=== PATIENT | female | born 1955 | race Caucasian/White ===

== ENCOUNTER → 2017-02-27 | Outpatient (CLI) | payer BC, OTHER ==
[~2017-02-27] MED LIST: ESTR1TAB27 PO; LVT.1T PO; MAGN400C PO; MEDR5TAB4 PO; SUMA100T3 PO; TOPI50TA2 PO
== END ==
LOC: RAD 13:05
PROVIDERS: ATTEND Nurse Practitioner Family
DX: Z12.31 Encounter for screening mammogram for malignant neoplasm of breast (principal)
CPT/HCPCS: 77067

== ENCOUNTER → 2018-04-30 | Outpatient (CLI) | payer BC ==
--- NOTE | 2018-04-30 21:26 | Diagnostic Imaging Report ---
INDICATION: Routine screening. Comparison is made with prior mammogram from 02/27/2017 and 02/13/2016. 2-D and 3-D bilateral screening mammography was performed with a Computer Aided Detection (CAD) system. FINDINGS: Both breasts remain heterogeneously dense, limiting the sensitivity of mammography. Benign nodules in the upper outer aspects of both breasts appear stable and most consistent with intraparenchymal lymph nodes. No new mass or malignant appearing microcalcifications are seen. Axillae are unremarkable. IMPRESSION: No mammographic features suspicious for malignancy are identified. ACR BI-RADS Category 2: Benign findings. Result letter will be mailed to the patient. Note: At least 10% of breast cancer is not imaged by mammography. Dictated by: Dictated on workstation # [id number]
== END ==
LOC: RAD 11:14
PROVIDERS: ATTEND Internal Medicine
DX: Z12.31 Encounter for screening mammogram for malignant neoplasm of breast (principal)
CPT/HCPCS: 77067

== ENCOUNTER → 2018-06-19 | Outpatient (CLI) | payer BC ==
--- NOTE | 2018-06-19 14:36 | Diagnostic Imaging Report ---
PROCEDURE: MRI lumbar spine. TECHNIQUE: Multiplanar, multisequence MRI of the lumbar spine was performed without contrast. INDICATION: Low back pain extending into the left leg. No prior studies are available for comparison. There is left convexity lumbar scoliotic curvature. There is normal lordotic curvature. There is grade 1 spondylolisthesis of L5 on S1, likely owing to bilateral pars defects. Vertebral body heights are maintained. No acute compression fracture is seen. No geographic marrow lesion is identified. There is generalized disc desiccation and degenerative change, most marked at the L4-L5 and L5-S1 levels where there is significant disc space narrowing. Conus is unremarkable at the L1 level. T12-L1: There is a left para midline wide based disc bulge/osteophyte producing slight indentation of the ventral thecal sac. Central canal remains patent. No neural foraminal stenosis is seen. L1-L2: No central canal or neural foraminal stenosis is seen. L2-L3: There is some ligamentous thickening and broad-based disc/osteophyte complex. Central canal is patent. There is mild broad-based disc/osteophyte complex in a right far lateral region but no resultant neural foraminal narrowing is seen. L3-L4: There is ligamentous thickening and facet changes. Central canal is patent. There appears to be some right neuroforaminal stenosis due to disc/osteophyte complex. The left neural foramen is patent. L4-L5: Central canal is patent. There is broad-based disc/osteophyte complex which narrows the lateral recesses bilaterally. No significant neural foraminal stenosis is seen. L5-S1: Central canal is widely patent. There is moderate bilateral neural foraminal stenosis due to the spondylolisthesis. Paraspinous tissues are unremarkable. IMPRESSION: Multilevel lumbar spondylosis and multilevel neural foraminal and lateral recess narrowing described level by level above. No significant central canal stenosis is seen. No acute compression fracture is identified. Dictated by: Dictated on workstation # [id number]
--- NOTE | 2018-06-19 14:59 | Diagnostic Imaging Report ---
PROCEDURE: MRI left joint lower extremity without contrast. TECHNIQUE: Multiplanar, multisequence non contrast-enhanced MRI of the left lower extremity was accomplished. INDICATION: Left knee pain, mostly lateral COMPARISON: None FINDINGS: There is motion artifact on multiple sequences. No acute fracture is seen in the left knee. Alignment appears normal. There is no significant joint effusion. The articular cartilage in the patellofemoral compartment demonstrates high-grade cartilage loss over the medial facet. The articular cartilage in the medial and lateral compartments demonstrates mild thinning and surface irregularity with no large full-thickness defects. There is increased signal in the posterior horn of the medial meniscus, likely due to degeneration. Discrete tear is not seen. The lateral meniscus appears intact. The anterior and posterior cruciate ligaments are intact. The medial collateral ligament is intact. The lateral collateral ligamentous complex are intact. The extensor mechanism appears intact. The medial and lateral retinacula are intact. There is moderate edema at the superolateral aspect of Hoffa's fat pad. The soft tissues about the left knee are otherwise unremarkable. IMPRESSION: 1. Intrasubstance degeneration of the medial meniscus with no discrete meniscal or ligamentous tear is seen in the left knee. 2. Mild tricompartmental cartilage loss in the left knee. 3. Moderate edema in the superolateral aspect of Hoffa's fat pad, concerning for patellofemoral impingement/friction syndrome. Dictated by: Dictated on workstation # [id number]
== END ==
LOC: RAD 13:02
PROVIDERS: ATTEND Orthopaedic Surgery
DX: M23.262 Derangement of other lateral meniscus due to old tear or injury, left knee (principal); M94.8X8 Other specified disorders of cartilage, other site; M48.07 Spinal stenosis, lumbosacral region; M43.17 Spondylolisthesis, lumbosacral region; M47.816 Spondylosis without myelopathy or radiculopathy, lumbar region; M41.86 Other forms of scoliosis, lumbar region; M51.16 Intervertebral disc disorders with radiculopathy, lumbar region
CPT/HCPCS: 72148; 73721

== ENCOUNTER → 2019-05-03 | Outpatient (CLI) | payer BC ==
--- NOTE | 2019-05-03 12:33 | Diagnostic Imaging Report ---
INDICATION: Routine screening. COMPARISON: 04/30/2018 and 02/27/2017. TECHNIQUE: 2D and 3D bilateral screening mammography was performed with CAD. FINDINGS: Both breasts remain heterogeneously dense, limiting the sensitivity of mammography. Benign-appearing nodular densities in the outer portions of both breasts appear stable and most consistent with intraparenchymal lymph nodes. No new mass or malignant appearing microcalcifications are seen. The axillae are unremarkable. IMPRESSION: No mammographic features suspicious for malignancy are identified. ACR BI-RADS Category 2: Benign findings. Result letter will be mailed to the patient. Note: At least 10% of breast cancer is not imaged by mammography. Dictated by: Dictated on workstation # [id number]
== END ==
LOC: RAD 11:36
PROVIDERS: ATTEND Nurse Practitioner Family
DX: Z12.31 Encounter for screening mammogram for malignant neoplasm of breast (principal)
CPT/HCPCS: 77067

== ENCOUNTER 2019-08-10 12:59 | Emergency (ER) | payer BC ==
[~2019-08-10] VITALS: Ht 165.1 cm; Wt 77.1 kg
--- OUTSIDE RECORDS SUMMARY | 2019-08-10 13:10 | XMS REPORT | Continuity of Care Document ---
Author Organization Unknown Address Unknown Phone Unavailable Allergies Active Description Code Type Severity Reaction Onset Reported/Identified Relationship to Patient Clinical Status Yes No Known Drug Allergies [id number] Drug Allergy Unknown N/A 07/21/2013 Medications There is no data. Problems Date Dx Coded Attending Type Code Diagnosis Diagnosed By 07/21/2013 CHESTER STEEN MD Ot 455.0 INT HEMORRHOID W/O COMPL 07/21/2013 CHESTER STEEN MD Ot 455.3 EXT HEMORRHOID W/O COMPL 07/21/2013 CHESTER STEEN MD Ot V76.51 SCREEN MAL NEOP-COLON 02/09/2015 MADDISON JACOBO SUPERVISOR TESTING Ot Z12.31 02/09/2015 Ot V76.12 02/09/2015 Ot V76.12 02/09/2015 MADDISON JACOBO SUPERVISOR TESTING Ot V76.12 02/09/2015 MADDISON JACOBO SUPERVISOR TESTING Ot 241.0 02/09/2015 CHESTER STEEN MD Ot V72.84 02/09/2015 MADDISON JACOBO SUPERVISOR TESTING Ot V76.12 02/09/2015 MADDISON JACOBO SUPERVISOR TESTING Ot Z12.31 02/15/2015 MADDISON JACOBO SUPERVISOR TESTING Ot Z12.31 02/15/2015 MADDISON JACOBO SUPERVISOR TESTING Ot Z12.31 02/15/2015 MADDISON JACOBO SUPERVISOR TESTING Ot Z12.31 02/23/2015 MADDISON JACOBO SUPERVISOR TESTING Ot Z12.31 02/13/2016 Ot V76.12 OTH SCREEN MAMMO- MALIGN NEOPLASM OF ALVARO 02/13/2016 MADDISON JACOBO SUPERVISOR TESTING Ot V76.12 OTH SCREEN MAMMO-MALIGN NEOPLASM OF ALVARO 02/13/2016 MADDISON JACOBO SUPERVISOR TESTING Ot 241.0 NONTOX UNINODULAR GOITER 02/13/2016 CHESTER STEEN MD Ot V72.84 EXAM PRE-OPERATIVE NOS 02/13/2016 JACOBO, MADDISON L SUPERVISOR TESTING Ot V76.12 OTH SCREEN MAMMO-MALIGN NEOPLASM OF ALVARO 02/13/2016 JACOBO MADDISON L SUPERVISOR TESTING Ot Z12.31 ENCNTR SCREEN MAMMOGRAM FOR MALIGNANT NE 02/19/2016 NEELIMA JACOBORICIA L SUPERVISOR TESTING Ot Z12.31 ENCNTR SCREEN MAMMOGRAM FOR MALIGNANT NE 02/26/2016 JACOBO, MADDISON L SUPERVISOR TESTING Ot Z12.31 ENCNTR SCREEN MAMMOGRAM FOR MALIGNANT NE 02/25/2017 Ot V76.12 OTH SCREEN MAMMO- MALIGN NEOPLASM OF ALVARO 02/25/2017 OSIEL JACOBOIA L SUPERVISOR TESTING Ot V76.12 OTH SCREEN MAMMO-MALIGN NEOPLASM OF ALVARO 02/25/2017 OSIEL JACOBOIA L SUPERVISOR TESTING Ot 241.0 NONTOX UNINODULAR GOITER 02/25/2017 CELSA OWENS, CHESTER Ot V72.84 EXAM PRE-OPERATIVE NOS 02/25/2017 JACOBO MADDISON L SUPERVISOR TESTING Ot V76.12 OTH SCREEN MAMMO-MALIGN NEOPLASM OF ALVARO 02/25/2017 OSIEL JACOBOIA L SUPERVISOR TESTING Ot Z12.31 ENCNTR SCREEN MAMMOGRAM FOR MALIGNANT NE 02/25/2017 NEELIMA JACOBORICIA L SUPERVISOR TESTING Ot Z12.31 ENCNTR SCREEN MAMMOGRAM FOR MALIGNANT NE 03/13/2017 OSIEL JACOBOIA L SUPERVISOR TESTING Ot Z12.31 ENCNTR SCREEN MAMMOGRAM FOR MALIGNANT NE 04/27/2018 NEELIMA JACOBORICIA L SUPERVISOR TESTING Ot Z12.31 ENCNTR SCREEN MAMMOGRAM FOR MALIGNANT NE 04/28/2018 JACOBO, MADDISON L SUPERVISOR TESTING Ot Z12.31 ENCNTR SCREEN MAMMOGRAM FOR MALIGNANT NE 04/30/2018 NEELIMA JACOBORICIA L SUPERVISOR TESTING Ot Z12.31 ENCNTR SCREEN MAMMOGRAM FOR MALIGNANT NE 05/01/2018 LALO JACOBO DO Ot Z12.31 ENCNTR SCREEN MAMMOGRAM FOR MALIGNANT NE 05/13/2018 LALO JACOBO DO Ot Z12.31 ENCNTR SCREEN MAMMOGRAM FOR MALIGNANT NE 06/21/2018 JUAN OWENS, SYLWIA Lind Ot M23.262 DERANGEMENT OF LAT MENSC DUE TO OLD TEAR 06/21/2018 SYLWIA MARTINEZ MD Ot M41.86 OTHER FORMS OF SCOLIOSIS, LUMBAR REGION 06/21/2018 SYLWIA MARTINEZ MD Ot M43.17 SPONDYLOLISTHESIS, LUMBOSACRAL REGION 06/21/2018 SYLWIA MARTINEZ MD Ot M47.816 SPONDYLOSIS W/O MYELOPATHY OR RADICULOPA 06/21/2018 SYLWIA MARTINEZ MD Ot M48.07 SPINAL STENOSIS, LUMBOSACRAL REGION 06/21/2018 SYLWIA MARTINEZ MD Ot M51.16 INTERVERTEBRAL DISC DISORDERS W RADICULO 06/21/2018 SYLWIA MARTINEZ MD Ot M94.8X8 OTHER SPECIFIED DISORDERS OF CARTILAGE, 07/01/2018 SYLWIA MARTINEZ MD Ot M23.262 DERANGEMENT OF LAT MENSC DUE TO OLD TEAR 07/01/2018 SYLWIA MARTINEZ MD Ot M41.86 OTHER FORMS OF SCOLIOSIS, LUMBAR REGION 07/01/2018 SYLWIA MARTINEZ MD Ot M43.17 SPONDYLOLISTHESIS, LUMBOSACRAL REGION 07/01/2018 SYLWIA MARTINEZ MD Ot M47.816 SPONDYLOSIS W/O MYELOPATHY OR RADICULOPA 07/01/2018 SYLWIA MARTINEZ MD Ot M48.07 SPINAL STENOSIS, LUMBOSACRAL REGION 07/01/2018 SYLWIA MARTINEZ MD Ot M51.16 INTERVERTEBRAL DISC DISORDERS W RADICULO 07/01/2018 SYLWIA MARTINEZ MD, Ot M94.8X8 OTHER SPECIFIED DISORDERS OF CARTILAGE, 05/03/2019 MADDISON JACOBO Ot Z12.31 ENCNTR SCREEN MAMMOGRAM FOR MALIGNANT NE 05/25/2019 MADDISON JACOBO Ot Z12.31 ENCNTR SCREEN MAMMOGRAM FOR MALIGNANT NE Procedures There is no data. Results There is no data. Encounters ACCT No. Visit Date/Time Discharge Status Pt. Type Provider Facility Loc./Unit Complaint [id number] 05/03/2019 11:36:00 020 23:59:59 [facility] Outpatient MADDISON JACOBO Via [facility] RAD SCREENING [id number] 06/19/2018 13:02:00 019 23:59:59 [facility] Outpatient SYLWIA MARTINEZ MD Via [facility] RAD LT TORSTEN STARK OF OTHER LATERAL MENISCUS [id number] 04/30/2018 11:14:00 019 23:59:59 CLS Outpatient JACOBO LALO Melchor Via [facility] RAD SCREENING [id number] 02/27/2017 13:05:00 017 23:59:59 CLS Outpatient JACOBO, MADDISON L SUPERVISOR TESTING Via [facility] RAD SCREENING [id number] 02/13/2016 12:54:00 016 23:59:59 CLS Outpatient JACOBO, MADDISON L SUPERVISOR TESTING Via [facility] RAD ROUTINE [id number] 02/07/2015 11:43:00 015 23:59:59 CLS Outpatient JACOBO, MADDISON L SUPERVISOR TESTING Via [facility] RAD SCREENING [id number] 01/17/2014 10:44:00 014 23:59:59 CLS Outpatient JACOBO, MADDISON L SUPERVISOR TESTING Via [facility] RAD ROUTINE [id number] 07/21/2013 07:57:00 014 11:45:00 DIS Outpatient CHESTER STEEN MD Via [facility] SDC SCREENING [id number] 07/14/2013 07:14:00 014 23:59:59 CLS Outpatient CHESTER STEEN MD Via [facility] PREOP SCREENING [id number] 02/12/2013 13:54:00 23:59:59 CLS Outpatient JACOBO, MADDISON L SUPERVISOR TESTING Via [facility] RAD THYROMEGLY [id number] 01/11/2013 11:25:00 23:59:59 CLS Outpatient JACOBO, MADDISON L SUPERVISOR TESTING Via [facility] RAD SCREENING [id number] 09/13/2011 10:01:00 Document Registration [id number] 07/30/2010 09:22:00 Document Registration
[2019-08-10] MEDS ORDERED: ONDANSETRON 4 MG (ZOFRAN) ORAL DISSOLVE TAB SL STA (13:55)
[2019-08-10 13:58] LABS: BILIRUBIN,URINE NEGATIVE (NEGATIVE); CLARITY,URINE CLEAR; COLOR,URINE YELLOW; GLUCOSE, URINE (UA) NEGATIVE (NEGATIVE); KETONES,URINE NEGATIVE (NEGATIVE); LEUKOCYTE ESTERASE ,URINE TRACE (NEGATIVE); NITRITE,URINE NEGATIVE (NEGATIVE); PH,URINE 6.5 (5-9); PROTEIN,URINE NEGATIVE (NEGATIVE)
[2019-08-10 14:05] LABS: BACTERIA,URINE TRACE /HPF; WBC,URINE RARE /HPF
[2019-08-10] MEDS ORDERED: NS IV 1000 ML 1,000 ML IV SCH (14:05)
--- NOTE | 2019-08-10 14:14 | ED Abdominal Pain ---
General Chief Complaint: Abdominal/GI Problems Stated Complaint: ABD PAIN Nursing Triage Note: Pt amb to rm 4 with complaint of llq pain that started last friday. states pain is intermittent. last bm this normal. states was a normal bowel movement Sepsis Screen: No Definite Risk History of Present Illness Date Seen by Provider: Aug 10, 2019 Time Seen by Provider: 13:25 Initial Comments 64-year-old female presents with left lower quadrant pain, radiating to left lower back that has been present intermittently since 08/02/19; nausea secondary to the pain. It became significantly worse today. She's not taken any medication for the pain or see her primary care provider. No history of chronic abdominal problems she's had no previous abdominal surgeries. Colonoscopy 1 year ago, no concerns. Ate breakfast this am and coffee, no N/V/D after eating. Timing/Duration: 6-7 Days Severity/Quality: Moderate Location: LLQ Radiation: Flank (left) Associated Symptoms: Back Pain, Nausea/Vomiting Allergies and Home Medications Allergies Coded Allergies: No Known Drug Allergies (Unverified , 07/21/13) Home Medications Estradiol 1 Mg Tablet, 1 MG PO DAILY, (Reported) Levothyroxine Sodium 100 Mcg Tablet, 1 EACH PO DAILY, (Reported) Magnesium Oxide 400 Mg Capsule, 400 MG PO DAILY, (Reported) Medroxyprogesterone Acetate 5 Mg Tablet, 1 EACH PO DAILY, (Reported) Sumatriptan Succinate 100 Mg Tablet, 100 MG PO DAILY PRN for MIGRAINE, (Reported) Topiramate 50 Mg Tablet, 50 MG PO DAILY, (Reported) Patient Home Medication List Home Medication List Reviewed: Yes Review of Systems Review of Systems Constitutional: no symptoms reported, see HPI Gastrointestinal: See HPI, Abdominal Pain; Denies Diarrhea; Nausea; Denies Vomiting Genitourinary: See HPI, Flank Pain (left) All Other Systems Reviewed Negative Unless Noted: Yes Past Mxrcxmc-Cegpsy-Rctqka Hx Past Med/Social Hx: Reviewed Nursing Past Med/Soc Hx Patient Social History Alcohol Use: Denies Use Recreational Drug Use: No Smoking Status: Never a Smoker Recent Foreign Travel: No Contact w/Someone Who Travel: No Recent Infectious Disease Expo: No Immunizations Up To Date PED Vaccines UTD: Yes Past Medical History Surgeries: Yes (CYST REMOVED FROM OVARY; WISDOM TEETH) Respiratory: No Cardiac: No Neurological: No Gastrointestinal: No Musculoskeletal: No Endocrine: Yes Physical Exam Vital Signs Vital Signs - First Documented 08/10/19 13:23 Temp 36.3 Pulse 73 Resp 20 B/P (MAP) 177/94 (121) Pulse Ox 97 O2 Delivery Room Air Capillary Refill : Less Than 3 Seconds Height/Weight/BMI Height: 5'5.00" Weight: 165lbs. oz. 74.402565sr; 28.00 BMI Method: General Appearance: WD/WN, mild distress (secondary to pain) HEENT: PERRL/EOMI, normal ENT inspection, TMs normal, pharynx normal Neck: non-tender, full range of motion, supple, normal inspection Respiratory: chest non-tender, lungs clear, normal breath sounds Cardiovascular: normal peripheral pulses, regular rate, rhythm Gastrointestinal: normal bowel sounds, soft; No distended, No rebound; tenderness (LLQ); No mass Back: normal inspection, no vertebral tenderness, CVA tenderness (L) Neurologic/Psychiatric: no motor/sensory deficits, alert, normal mood/affect, oriented x 3 Skin: normal color, warm/dry Progress/Results/Core Measures Results/Orders Lab Results Laboratory Tests Test 08/10/19 13:28 08/10/19 14:20 Range/Units Urine Color YELLOW Urine Clarity CLEAR Urine pH 6.5 5-9 Urine Specific [place] <=1.005 1.016-1.022 Urine Protein NEGATIVE NEGATIVE Urine Glucose (UA) NEGATIVE NEGATIVE Urine Ketones NEGATIVE NEGATIVE Urine Nitrite NEGATIVE NEGATIVE Urine Bilirubin NEGATIVE NEGATIVE Urine Urobilinogen 0.2 < = 1.0 MG/DL Urine Leukocyte Esterase TRACE H NEGATIVE Urine RBC (Auto) NEGATIVE NEGATIVE Urine RBC NONE /HPF Urine WBC RARE /HPF Urine Squamous Epithelial Cells 5-10 /HPF Urine Crystals NONE /LPF Urine Bacteria TRACE /HPF Urine Casts NONE /LPF Urine Mucus NEGATIVE /LPF Urine Culture Indicated NO White Blood Count 8.8 4.3-11.0 10^3/uL Red Blood Count 5.07 4.35-5.85 10^6/uL Hemoglobin 15.2 11.5-16.0 G/DL Hematocrit 45 35-52 % Mean Corpuscular Volume 89 80-99 FL Mean Corpuscular Hemoglobin 30 25-34 PG Mean Corpuscular Hemoglobin Concent 34 32-36 G/DL Red Cell Distribution Width 13.0 10.0-14.5 % Platelet Count 318 130-400 10^3/uL Mean Platelet Volume 9.6 7.4-10.4 FL Neutrophils (%) (Auto) 64 42-75 % Lymphocytes (%) (Auto) 24 12-44 % Monocytes (%) (Auto) 9 0-12 % Eosinophils (%) (Auto) 2 0-10 % Basophils (%) (Auto) 1 0-10 % Neutrophils # (Auto) 5.6 1.8-7.8 X 10^3 Lymphocytes # (Auto) 2.1 1.0-4.0 X 10^3 Monocytes # (Auto) 0.8 0.0-1.0 X 10^3 Eosinophils # (Auto) 0.2 0.0-0.3 10^3/uL Basophils # (Auto) 0.1 0.0-0.1 10^3/uL Sodium Level 136 135-145 MMOL/L Potassium Level 3.9 3.6-5.0 MMOL/L Chloride Level 107 98-107 MMOL/L Carbon Dioxide Level 18 L 21-32 MMOL/L Anion Gap 11 5-14 MMOL/L Blood Urea Nitrogen 14 7-18 MG/DL Creatinine 0.94 0.60-1.30 MG/DL Estimat Glomerular Filtration Rate 60 BUN/Creatinine Ratio 15 Glucose Level 92 70-105 MG/DL Calcium Level 8.8 8.5-10.1 MG/DL Corrected Calcium 8.9 8.5-10.1 MG/DL Total Bilirubin 0.3 0.1-1.0 MG/DL Aspartate Amino Transf (AST/SGOT) 12 5-34 U/L Alanine Aminotransferase (ALT/SGPT) 10 0-55 U/L Alkaline Phosphatase 62 40-136 U/L Total Protein 6.8 6.4-8.2 GM/DL Albumin 3.9 3.2-4.5 GM/DL Amylase Level 45 25-125 U/L Lipase 40 8-78 U/L My Orders Orders - MAIRA BANEGAS Ua Culture If Indicated (08/10/19 13:01) Ondansetron Oral Dissolve Tab (Zofran (08/10/19 13:55) Ct Abd/Pelvis Wo(Kidney Stone) (08/10/19 14:05) Ed Iv/Invasive Line Start (08/10/19 14:05) Ketorolac Injection (Toradol Injection) (08/10/19 14:15) Amylase (08/10/19 14:05) Cbc With Automated Diff (08/10/19 14:05) Comprehensive Metabolic Panel (08/10/19 14:05) Lipase (08/10/19 14:05) Ed Iv/Invasive Line Start (08/10/19 14:05) Ns Iv 1000 Ml (Sodium Chloride 0.9%) (08/10/19 14:05) Ca 125 (08/10/19 15:27) Us Pelvic Non-Ob [id number] (08/10/19 15:19) Medications Given in ED Current Medications Medications Dose Ordered Sig/Sarita Route Start Time Stop Time Status Last Admin Dose Admin Ketorolac Tromethamine 15 mg ONCE ONCE IV 08/10/19 14:15 08/10/19 14:16 DC 08/10/19 14:22 15 MG Vital Signs/I&O 08/10/19 13:23 Temp 36.3 Pulse 73 Resp 20 B/P (MAP) 177/94 (121) Pulse Ox 97 O2 Delivery Room Air Blood Pressure Mean: 121 Progress Progress Note : Time: 13:25 Progress Note Patient seen and evaluated, will obtain labs and CT study. 1415 patient reports pain has improved. Awaiting CT, labs WNL. [address] Kenyon, asked to add CA 125 to labs. Will see patient later this week. Will obtain US. [address] results discussed with the patient. Discharge instructions and return precautions reviewed. Diagnostic Imaging Diagonstic Imaging: CT Plain Films/CT/US/NM/MRI: abdomen, pelvis Comments NAME: [facility] REC#: [id number] PT STATUS: REG ER : 1955 PHYSICIAN: MAIRA BANEGAS ADMIT DATE: 08/10/19/ER Draft Date of Exam:08/10/19 CT ABD/PELVIS WO(KIDNEY STONE) PROCEDURE: CT urinary tract, rule out kidney stone. TECHNIQUE: Multiple contiguous axial images were obtained through the abdomen and pelvis without the use of intravenous contrast. Auto Exposure Controls were utilized during the CT exam to meet ALARA standards for radiation dose reduction. INDICATION: Left lower quadrant pain. COMPARISON: No prior studies are available for comparison. FINDINGS: The lung bases are clear of acute infiltrates. The liver does contain multiple circumscribed low densities, suggestive of cysts. The largest is in the left lobe laterally measuring 3.4 cm. The gallbladder is unremarkable. No biliary ductal dilatation is identified. The pancreas and spleen are unremarkable. No adrenal mass is identified. No definite renal calculi or hydronephrosis is identified. No ureteral calculi are seen. There is a large cystic mass in the midline of the pelvis, directly cephalad to the urinary bladder. This does have some septated components. This mass measures 16.6 cm AP x 13.7 cm transverse. This may be ovarian in etiology. The uterus is unremarkable. No free fluid in the abdomen or pelvis is identified. No central retroperitoneal or mesenteric lymphadenopathy is detected. There is a small fat-containing umbilical hernia. No definite pelvic lymphadenopathy is detected. Bony structures demonstrate pars defects at the L5-S1 level with grade 1 spondylolisthesis of L5 on S1. IMPRESSION: 1. Hepatic cyst. 2. Large septated cystic mass midline pelvis. It is likely ovarian in etiology. Further characterization could be performed with pelvic sonography. No definite free fluid or evidence of omental caking is identified to suggest peritoneal carcinomatosis. Dictated on workstation # [id number] Dict: 08/10/19 1449 Trans: 08/10/19 1457 [facility] [id number] Interpreted by: JUNE CORTEZ MD Electronically signed by: Faisal Imaging: Ultrasound Plain Films/CT/US/NM/MRI: pelvis Comments NAME: ANNA ENNIS [facility] REC#: [id number] PT STATUS: REG ER : 1955 PHYSICIAN: MAIRA BANEGAS ADMIT DATE: 08/10/19/ER Draft Date of Exam:08/10/19 US PELVIC NON-OB [id number] HISTORY: Pelvic mass seen on CT. COMPARISON: CT scan from the same day. TECHNIQUE: Transabdominal ultrasound of the pelvis. FINDINGS: There is a large mostly anechoic cystic lesion in the midline of the pelvis and, due to the size, it is better measured on the prior CT. By ultrasound, it measures at least 16.5 x 8 x 13.5 cm. There is internal debris and echogenicity. No nodular solid component is seen. No papillary projections are seen. There are internal septations as well, some of which are vascular. The ovaries and uterus are not well seen on these images. IMPRESSION: Very large complex cystic lesion in the pelvis. There are vascularized septations but no nodular component is seen. 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 Recommend gynecology consult. Dictated on workstation # [id number] Dict: 08/10/19 1634 Trans: 08/10/19 1652 [id number] Interpreted by: JAVI RAMOS MD Electronically signed by: Reviewed: Reviewed by Me, Reviewed/Discussed (With [employer]) Departure Impression Primary Impression: Pelvic mass Disposition: HOME, SELF-CARE Condition: Stable Departure-Patient Inst. Decision time for Depature: 16:15 Referrals: LALO JACOBO DO (PCP) Primary Care Physician MADDISON JACOBO, SOLOMON (Family) Primary Care Physician JIMBO KENYON DO Patient Instructions: Acute Abdomen (Belly Pain), Adult (DC) Add. Discharge Instructions: Dr. Kenyon's office will call you for appt. Diet and Activity as tolerated. Alternate Ibuprofen 600 mg and Tylenol 650 mg every 4 hours for pain. All discharge instructions reviewed with patient and/or family. Voiced understanding. Copy Copies To 1: JIMBO KENYON AMY ARNP Aug 10, 2019 14:13
[2019-08-10] MEDS ORDERED: KETOROLAC 30 MG/ML VIAL IV ONE (14:15)
[2019-08-10 14:34] LABS: BASOPHILS # (AUTO) 0.1 10^3/uL (0.0-0.1); BASOPHILS % (AUTO) 1 % (0-10); EOSINOPHILS # (AUTO) 0.2 10^3/uL (0.0-0.3); EOSINOPHILS % (AUTO) 2 % (0-10); HEMATOCRIT 45 % (35-52); HEMOGLOBIN 15.2 G/DL (11.5-16.0); LYMPHOCYTES # (AUTO) 2.1 X 10^3 (1.0-4.0); LYMPHOCYTES % (AUTO) 24 % (12-44); MEAN CORPUSCULAR HEMOGLOBIN 30 PG (25-34); MEAN CORPUSCULAR HGB CONC 34 G/DL (32-36); MEAN CORPUSCULAR VOLUME 89 FL (80-99); MEAN PLATELET VOLUME 9.6 FL (7.4-10.4); MONOCYTES # (AUTO) 0.8 X 10^3 (0.0-1.0); MONOCYTES % (AUTO) 9 % (0-12); NEUTROPHILS # (AUTO) 5.6 X 10^3 (1.8-7.8); NEUTROPHILS % (AUTO) 64 % (42-75); PLATELET COUNT 318 10^3/uL (130-400); WHITE BLOOD COUNT 8.8 10^3/uL (4.3-11.0)
[2019-08-10 14:57] LABS: ALBUMIN 3.9 GM/DL (3.2-4.5); BILIRUBIN,TOTAL 0.3 MG/DL (0.1-1.0); CALCIUM 8.8 MG/DL (8.5-10.1); CREATININE SERUM 0.94 MG/DL (0.60-1.30); POTASSIUM 3.9 MMOL/L (3.6-5.0); TOTAL PROTEIN 6.8 GM/DL (6.4-8.2)
--- NOTE | 2019-08-10 14:59 | Diagnostic Imaging Report ---
PROCEDURE: CT urinary tract, rule out kidney stone. TECHNIQUE: Multiple contiguous axial images were obtained through the abdomen and pelvis without the use of intravenous contrast. Auto Exposure Controls were utilized during the CT exam to meet ALARA standards for radiation dose reduction. INDICATION: Left lower quadrant pain. COMPARISON: No prior studies are available for comparison. FINDINGS: The lung bases are clear of acute infiltrates. The liver does contain multiple circumscribed low densities, suggestive of cysts. The largest is in the left lobe laterally measuring 3.4 cm. The gallbladder is unremarkable. No biliary ductal dilatation is identified. The pancreas and spleen are unremarkable. No adrenal mass is identified. No definite renal calculi or hydronephrosis is identified. No ureteral calculi are seen. There is a large cystic mass in the midline of the pelvis, directly cephalad to the urinary bladder. This does have some septated components. This mass measures 16.6 cm AP x 13.7 cm transverse. This may be ovarian in etiology. The uterus is unremarkable. No free fluid in the abdomen or pelvis is identified. No central retroperitoneal or mesenteric lymphadenopathy is detected. There is a small fat-containing umbilical hernia. No definite pelvic lymphadenopathy is detected. Bony structures demonstrate pars defects at the L5-S1 level with grade 1 spondylolisthesis of L5 on S1. IMPRESSION: 1. Hepatic cyst. 2. Large septated cystic mass midline pelvis. It is likely ovarian in etiology. Further characterization could be performed with pelvic sonography. No definite free fluid or evidence of omental caking is identified to suggest peritoneal carcinomatosis. Dictated by: Dictated on workstation # [id number]
--- NOTE | 2019-08-10 16:53 | Diagnostic Imaging Report ---
HISTORY: Pelvic mass seen on CT. COMPARISON: CT scan from the same day. TECHNIQUE: Transabdominal ultrasound of the pelvis. FINDINGS: There is a large mostly anechoic cystic lesion in the midline of the pelvis and, due to the size, it is better measured on the prior CT. By ultrasound, it measures at least 16.5 x 8 x 13.5 cm. There is internal debris and echogenicity. No nodular solid component is seen. No papillary projections are seen. There are internal septations as well, some of which are vascular. The ovaries and uterus are not well seen on these images. IMPRESSION: Very large complex cystic lesion in the pelvis. There are vascularized septations but no nodular component is seen. 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 Recommend gynecology consult. Dictated by: Dictated on workstation # [id number]
[2019-08-10 16:56] VITALS: BP 138/98
[2019-08-13] MEDS ORDERED: CYCL10TA9 PO (13:41)
[2019-08-13] MEDS ORDERED: LEVO50TA6 PO (13:41)
[2019-08-13] MEDS ORDERED: MAGN400T7 PO (13:41)
== END 2019-08-10 16:59 | disposition home or self-care (01) ==
LOC: EDUNIT# 12:59 → ER 13:01
DX: R19.09 Other intra-abdominal and pelvic swelling, mass and lump (principal); R10.32 Left lower quadrant pain; M54.5 Low back pain; Z79.899 Other long term (current) drug therapy
CPT/HCPCS: 36415; 74176; 76857; 80053; 81000; 82150; 83690; 85025; 86304

== ENCOUNTER → 2019-08-26 | Outpatient (CLI) | payer BC ==
[~2019-08-26] MED LIST changes: +ACET-93 PO; +CATHETER FLUSH 10 ML SYR IV PRN; +CYCL10TA9 PO; +FAMO20TA5 PO; +HOLD METFORMIN - RECEIVED CONTRAST 20 ML VIAL IV SCH; +IOHEXOL 350 MG/ML 100 ML (OMNIPAQUE 350) VIAL IV ONE; +LEVO50TA6 PO; +MAGN400T7 PO; +NS 100 ML (IVPB) BAG IV ONE; +OXYC5TAB96 PO; +SIME80TA16 PO; +ZOLP5TAB7 PO
--- NOTE | 2019-08-26 14:48 | Diagnostic Imaging Report ---
PROCEDURE: CT abdomen and pelvis with and without contrast. TECHNIQUE: Precontrast acquisitions were acquired through the abdomen and pelvis. Multiple contiguous axial images were obtained through the abdomen and pelvis after the administration of intravenous contrast. Auto Exposure Controls were utilized during the CT exam to meet ALARA standards for radiation dose reduction. INDICATION: Status post pelvic mass resection and hysterectomy 10 days ago. Patient has discharge from the vagina with some dehiscence of the vaginal cuff. The study is performed to evaluate for urinary tract leak. FINDINGS: The lung bases are clear. Liver demonstrates multiple circumscribed low densities, consistent with cysts. The gallbladder is unremarkable. No biliary ductal dilatation is seen. The pancreas and spleen are unremarkable. No adrenal mass is detected. Right kidney is unremarkable. There is left-sided hydroureteronephrosis. There is delayed excretion of contrast into the dilated left ureter. Initial delayed images do demonstrate contrast within the left renal collecting system. Aorta is nonaneurysmal. Postsurgical changes in the pelvis are identified. There is a small gas and fluid collection in the midline pelvis in the region of the vaginal cuff measuring 4.9 cm x 1.8 cm. Additional delayed imaging was performed and this area of fluid does fill with high-density contrast material. Sagittal reconstructions demonstrate communication of the posterior wall of the urinary bladder just to the left of midline with this collection. A focal opening within the urinary bladder is approximately 14 mm transverse x 8 mm cephalocaudal. This is well seen on the sagittal reconstructions. The distal left ureter is dilated to this level but the UVJ on the left is likely slightly more inferior. Ureteral obstruction and dilatation may be owing to surrounding inflammation at this location but distal ureteral injury cannot be entirely excluded. Small amount of gas in the urinary bladder is noted. Bowel loops are nonobstructed. IMPRESSION: Abnormal communication between the posterior wall of the urinary bladder with the vaginal cuff region. Small amount of contrast is seen within the vagina. There is left-sided hydroureteronephrosis, trace to the level of the UVJ. Left-sided urinary tract obstruction may be owing to inflammatory changes near the UVJ but distal left ureteral injury cannot be entirely excluded. Dictated by: Dictated on workstation # [id number]
== END ==
LOC: RAD 10:03
PROVIDERS: ATTEND Obstetrics & Gynecology
DX: Z48.89 Encounter for other specified surgical aftercare (principal); T81.31XA Disruption of external operation (surgical) wound, not elsewhere classified, initial encounter; N89.8 Other specified noninflammatory disorders of vagina; N13.0 Hydronephrosis with ureteropelvic junction obstruction; Z98.890 Other specified postprocedural states; Z90.710 Acquired absence of both cervix and uterus
CPT/HCPCS: 74178

== ENCOUNTER → 2019-09-01 | Outpatient (CLI) | payer BC ==
[~2019-09-01] MED LIST changes: +DIATRIZOATE 30% 300 ML (CYSTOGRAFIN) VIAL UR ONE
--- NOTE | 2019-09-02 09:21 | Diagnostic Imaging Report ---
PROCEDURE; CT pelvis with and without contrast. TECHNIQUE: Noncontrast axial imaging through the pelvis was performed. Next, contrast was infused into the patient's urinary bladder in a retrograde fashion through an indwelling Pinon catheter. Axial imaging through the pelvis was performed. Next, the bladder was drained and additional axial imaging through the pelvis was performed. No IV or oral contrast was administered. Correlation is made with recent CT abdomen and pelvis study from 08/26/2019. Precontrast images demonstrate a Pinon catheter within the urinary bladder which is decompressed. No definite free fluid or fluid collection is seen. Bowel loops are unremarkable. A CT cystogram images demonstrate contrast within the urinary bladder. There is a focal defect in the posterior wall of the urinary bladder just to the left of midline measuring 2 cm in transverse dimension. Contrast extends through the bladder wall defect and collects posterior to the bladder. Contrast collection posterior to the bladder measures 4.7 cm transverse by 2.4 cm AP by approximately 3.7 cm cephalocaudal. This is adjacent to the vaginal cuff. A minimal contrast appears to extend into the vagina. IMPRESSION: There continues to be a posterior bladder wall defect with contrast extending through the defect and and collecting adjacent to the vaginal cuff posterior to the bladder. Minimal contrast is seen within the vagina. Bladder wall defect is approximately 2.0 x 1.5 cm. Dictated by: Dictated on workstation # [id number]
== END ==
LOC: RAD 15:17
PROVIDERS: ATTEND Obstetrics & Gynecology
DX: S37.20XA Unspecified injury of bladder, initial encounter (principal); X58.XXXA Exposure to other specified factors, initial encounter
CPT/HCPCS: 72194

== ENCOUNTER 2019-09-05 11:17 | Emergency (ER) | payer BC ==
[~2019-09-05] VITALS: Ht 165 cm; Wt 72.0 kg
[~2019-09-05 11:17] MED LIST changes: -CATHETER FLUSH 10 ML SYR IV PRN; -DIATRIZOATE 30% 300 ML (CYSTOGRAFIN) VIAL UR ONE; -HOLD METFORMIN - RECEIVED CONTRAST 20 ML VIAL IV SCH; -IOHEXOL 350 MG/ML 100 ML (OMNIPAQUE 350) VIAL IV ONE; -NS 100 ML (IVPB) BAG IV ONE
[2019-09-05 11:20] VITALS: BP 129/79
--- OUTSIDE RECORDS SUMMARY | 2019-09-05 11:22 | XMS REPORT | Continuity of Care Document ---
Author Organization Unknown Address Unknown Phone Unavailable Allergies Active Description Code Type Severity Reaction Onset Reported/Identified Relationship to Patient Clinical Status Yes No Known Drug Allergies [id number] Drug Allergy Unknown N/A 07/21/2013 Medications There is no data. Problems Date Dx Coded Attending Type Code Diagnosis Diagnosed By 07/21/2013 CHESTER STEEN MD Ot 455.0 INT HEMORRHOID W/O COMPL 07/21/2013 CHESTER STEEN MD Ot 455.3 EXT HEMORRHOID W/O COMPL 07/21/2013 CHESTER STEEN MD Ot V76.51 SCREEN MAL NEOP-COLON 02/09/2015 MADDISON JACOBO AEROSPACE QUALITY ENGINEER Ot Z12.31 02/09/2015 Ot V76.12 02/09/2015 Ot V76.12 02/09/2015 MADDISON JACOBO AEROSPACE QUALITY ENGINEER Ot V76.12 02/09/2015 MADDISON JACOBO AEROSPACE QUALITY ENGINEER Ot 241.0 02/09/2015 CHESTER STEEN MD Ot V72.84 02/09/2015 MADDISON JACOBO AEROSPACE QUALITY ENGINEER Ot V76.12 02/09/2015 MADDISON JACOBO AEROSPACE QUALITY ENGINEER Ot Z12.31 02/15/2015 MADDISON JACOBO AEROSPACE QUALITY ENGINEER Ot Z12.31 02/15/2015 MADDISON JACOBO AEROSPACE QUALITY ENGINEER Ot Z12.31 02/15/2015 MADDISON JACOBO AEROSPACE QUALITY ENGINEER Ot Z12.31 02/23/2015 MADDISON JACOBO AEROSPACE QUALITY ENGINEER Ot Z12.31 02/13/2016 Ot V76.12 OTH SCREEN MAMMO- MALIGN NEOPLASM OF ALVARO 02/13/2016 MADDISON JACOBO AEROSPACE QUALITY ENGINEER Ot V76.12 OTH SCREEN MAMMO-MALIGN NEOPLASM OF ALVARO 02/13/2016 MADDISON JACOBO AEROSPACE QUALITY ENGINEER Ot 241.0 NONTOX UNINODULAR GOITER 02/13/2016 CHESTER STEEN MD Ot V72.84 EXAM PRE-OPERATIVE NOS 02/13/2016 JACOBO MADDISON L AEROSPACE QUALITY ENGINEER Ot V76.12 OTH SCREEN MAMMO-MALIGN NEOPLASM OF ALVARO 02/13/2016 NEELIMA JACOBORICIA L AEROSPACE QUALITY ENGINEER Ot Z12.31 ENCNTR SCREEN MAMMOGRAM FOR MALIGNANT NE 02/19/2016 OSIEL JACOBOIA L AEROSPACE QUALITY ENGINEER Ot Z12.31 ENCNTR SCREEN MAMMOGRAM FOR MALIGNANT NE 02/26/2016 NEELIMA JACOBORICIA L AEROSPACE QUALITY ENGINEER Ot Z12.31 ENCNTR SCREEN MAMMOGRAM FOR MALIGNANT NE 02/25/2017 Ot V76.12 OTH SCREEN MAMMO- MALIGN NEOPLASM OF ALVARO 02/25/2017 OSIEL JACOBOIA L AEROSPACE QUALITY ENGINEER Ot V76.12 OTH SCREEN MAMMO-MALIGN NEOPLASM OF ALVARO 02/25/2017 MADDISON JACOBO L AEROSPACE QUALITY ENGINEER Ot 241.0 NONTOX UNINODULAR GOITER 02/25/2017 CELSA OWENS, CHESTER Ot V72.84 EXAM PRE-OPERATIVE NOS 02/25/2017 OSIEL JACOBOIA L AEROSPACE QUALITY ENGINEER Ot V76.12 OTH SCREEN MAMMO-MALIGN NEOPLASM OF ALVARO 02/25/2017 OSIEL JACOBOIA L AEROSPACE QUALITY ENGINEER Ot Z12.31 ENCNTR SCREEN MAMMOGRAM FOR MALIGNANT NE 02/25/2017 NEELIMA JACOBORICIA L AEROSPACE QUALITY ENGINEER Ot Z12.31 ENCNTR SCREEN MAMMOGRAM FOR MALIGNANT NE 03/13/2017 OSIEL JACOBOIA L AEROSPACE QUALITY ENGINEER Ot Z12.31 ENCNTR SCREEN MAMMOGRAM FOR MALIGNANT NE 04/27/2018 NEELIMA JACOBORICIA L AEROSPACE QUALITY ENGINEER Ot Z12.31 ENCNTR SCREEN MAMMOGRAM FOR MALIGNANT NE 04/28/2018 DONNELL MADDISON L AEROSPACE QUALITY ENGINEER Ot Z12.31 ENCNTR SCREEN MAMMOGRAM FOR MALIGNANT NE 04/30/2018 NEELIMA JACOBORICIA L AEROSPACE QUALITY ENGINEER Ot Z12.31 ENCNTR SCREEN MAMMOGRAM FOR MALIGNANT NE 05/01/2018 LALO JACOBO DO Ot Z12.31 ENCNTR SCREEN MAMMOGRAM FOR MALIGNANT NE 05/13/2018 LALO JACOBO DO Ot Z12.31 ENCNTR SCREEN MAMMOGRAM FOR MALIGNANT NE 06/21/2018 SYLWIA MARTINEZ MD Ot M23.262 DERANGEMENT OF [...] DISC DISORDERS W RADICULO 07/01/2018 SYLWIA MARTINEZ MD Ot M94.8X8 OTHER SPECIFIED DISORDERS OF CARTILAGE, 05/03/2019 MADDISON JACOBOP Ot Z12.31 ENCNTR SCREEN MAMMOGRAM FOR MALIGNANT NE 05/25/2019 MADDISON JACOBO AEROSPACE QUALITY ENGINEER Ot Z12.31 ENCNTR SCREEN MAMMOGRAM FOR MALIGNANT NE 08/10/2019 MAIRA BANEGASP Ot M54.5 LOW BACK PAIN 08/10/2019 MAIRA BANEGASP Ot R10.32 LEFT LOWER QUADRANT PAIN 08/10/2019 MAIRA BANEGAS AEROSPACE QUALITY ENGINEER Ot R19.09 OTHER INTRA-ABDOMINAL AND PELVIC SWELLIN 08/10/2019 MAIRA BANEGASP Ot Z79.899 OTHER FPC (CURRENT) DRUG THERAPY 08/16/2019 MADDISON JACOBO Ot Z12.31 ENCNTR SCREEN MAMMOGRAM FOR MALIGNANT NE 08/16/2019 LALO JACOBO DO Ot Z12.31 ENCNTR SCREEN MAMMOGRAM FOR MALIGNANT NE 08/16/2019 JUAN OWENS, SYLWIA Lind Ot M23.262 DERANGEMENT OF LAT MENSC DUE TO OLD TEAR 08/16/2019 JUAN OWENS, SYLWIA Lind Ot M41.86 OTHER FORMS OF SCOLIOSIS, LUMBAR REGION 08/16/2019 JUAN OWENS, SYLWIA Lind Ot M43.17 SPONDYLOLISTHESIS, LUMBOSACRAL REGION 08/16/2019 JUAN OWENS, SYLWIA Lind Ot M47.816 SPONDYLOSIS W/O MYELOPATHY OR RADICULOPA 08/16/2019 JUAN OWENS, SYLWIA Lind Ot M48.07 SPINAL STENOSIS, LUMBOSACRAL REGION 08/16/2019 JUAN OWENS, SYLWIA Lind Ot M51.16 INTERVERTEBRAL DISC DISORDERS W RADICULO 08/16/2019 JUAN OWENS, SYLWIA Lind Ot M94.8X8 OTHER SPECIFIED DISORDERS OF CARTILAGE, 08/16/2019 MADDISON JACOBO Ot Z12.31 ENCNTR SCREEN MAMMOGRAM FOR MALIGNANT NE 08/17/2019 JIMBO KENYON DO Ot D25.1 INTRAMURAL LEIOMYOMA OF UTERUS 08/17/2019 JIMBO KENYON DO C Ot D27.1 BENIGN NEOPLASM OF LEFT OVARY 08/17/2019 JIMBO KENYON DO C Ot E86.0 DEHYDRATION 08/17/2019 JIMBO KENYON DO Ot I10 ESSENTIAL (PRIMARY) HYPERTENSION 08/17/2019 JIMBO KENYON DO C Ot I49.9 CARDIAC ARRHYTHMIA, UNSPECIFIED 08/17/2019 JIMBO KENYON DO C Ot J98.1 1 ATELECTASIS 08/17/2019 JIMBO KENYON DO C Ot K91.8 9 OTH POSTPROCEDURAL COMPLICATIONS AND DIS 08/17/2019 JIMBO KENYON DO Ot N28.9 DISORDER OF KIDNEY AND URETER, UNSPECIFI 08/17/2019 JIMBO KENYON DO C Ot 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 08/17/2019 JIMBO KENYON DO C Ot N83.5 3 TORSION OF OVARY, OVARIAN PEDICLE AND FA 08/17/2019 JIMBO KENYON DO Ot N94.8 9 OTH COND ASSOC W FEMALE GENITAL ORGANS A 08/17/2019 JIMBO KENYON DO Ot T39.395A ADVERSE EFFECT OF NONSTEROIDAL ANTI-INFL 09/01/2019 MADDISON JACOBO Ot Z12.31 ENCNTR SCREEN MAMMOGRAM FOR MALIGNANT NE 09/01/2019 LALO JACOBO DO Ot Z12.31 ENCNTR SCREEN MAMMOGRAM FOR MALIGNANT NE 09/01/2019 JUAN OWENS, SYLWIA Lind Ot M23.262 DERANGEMENT OF LAT MENSC DUE TO OLD TEAR 09/01/2019 JUAN OWENS, SYLWIA Lind Ot M41.86 OTHER FORMS OF SCOLIOSIS, LUMBAR REGION 09/01/2019 JUAN OWENS, SYLWIA Lind Ot M43.17 SPONDYLOLISTHESIS, LUMBOSACRAL REGION 09/01/2019 JUAN OWENS, SYLWIA Lind Ot M47.816 SPONDYLOSIS W/O MYELOPATHY OR RADICULOPA 09/01/2019 JUAN OWENS, SYLWIA Lind Ot M48.07 SPINAL STENOSIS, LUMBOSACRAL REGION 09/01/2019 JUAN OWENS, SYLWIA Lind Ot M51.16 INTERVERTEBRAL DISC DISORDERS W RADICULO 09/01/2019 SYLWIA MARTINEZ MD Ot M94.8X8 OTHER SPECIFIED DISORDERS OF CARTILAGE, 09/01/2019 MADDISON JACOBO Ot Z12.31 ENCNTR SCREEN MAMMOGRAM FOR MALIGNANT NE 09/01/2019 JIMBO KENYON DO Ot N13.0 HYDRONEPHROSIS WITH URETEROPELVIC JUNCTI 09/01/2019 JIMBO KENYON DO Ot N89.8 OTHER SPECIFIED NONINFLAMMATORY DISORDER 09/01/2019 JIMBO KENYON DO Ot T81.31XA DISRUPTION OF EXTERNAL OPERATION (SURGIC 09/01/2019 JIMBO KENYON DO Ot Z48.8 9 ENCOUNTER FOR OTHER SPECIFIED SURGICAL A 09/01/2019 JIMBO KENYON DO Ot Z90.7 10 ACQUIRED ABSENCE OF BOTH CERVIX AND UTER 09/01/2019 JIMBO KENYON DO Ot Z98.8 90 OTHER SPECIFIED POSTPROCEDURAL STATES 09/02/2019 KOSTAS DOJIMBO Ot S37.20XA UNSPECIFIED INJURY OF BLADDER, INITIAL E 09/02/2019 JIMBO KENYON DO Ot X58.XXXA EXPOSURE TO OTHER SPECIFIED FACTORS, INI 09/03/2019 JIMBO KENYON DO Ot S37.20XA UNSPECIFIED INJURY OF BLADDER, INITIAL E 09/03/2019 JIMBO KENYON DO Ot X58.XXXA EXPOSURE TO OTHER SPECIFIED FACTORS, INI Procedures Code Description Performed By Per formed On [id number] RE SECTION OF BILATERAL OVARIES, OPEN JESSI 08/13/2019 [id number] RE SECTION OF BILATERAL FALLOPIAN TUBES, 08/13/2019 Results Test Result Range Complete urinalysis with reflex to cultu re - 08/10/19 13:28 Urine color determination YELLOW NRG Urine clarity determination CLEAR NR G Urine pH measurement by test strip 6.5 5-9 Specific gravity of urine by test strip <= 1.016-1.022 Urine protein assay by test strip, semi-quantitative NEGATIVE NEGATIVE Urine glucose detection by automated test strip NE GATIVE NEGATIVE Erythrocytes detection in urine sediment by light micr oscopy NEGATIVE NEGATIVE Urine ketones detection by automated test strip NE GATIVE NEGATIVE Urine nitrite detection by test strip NEGATIVE NEGATIVE Urine total bilirubin detection by test strip NEGA TIVE NEGATIVE Urine urobilinogen measurement by automated test strip (mass/volume) 0.2 mg/dL < = 1.0 Urine leukocyte esterase detection by dipstick TRA CE NEGATIVE Automated urine sediment erythrocyte cou nt by microscopy (number/high power field) NONE NRG Automated urine sediment leukocyte count by microscopy (number/high power field) RARE NRG Bacteria detection in urine sediment by light microsco py TRACE NRG Squamous epithelial cells detection in u rine sediment by light microscopy 5-10 NRG Crystals detection in urine sediment by light microsco py NONE NRG Casts detection in urine sediment by light microscopy NONE NRG Mucus detection in urine sediment by light microscopy NEGATIVE NRG Complete urinalysis with reflex to culture NO NRG Complete blood count (CBC) with automate d white blood cell (WBC) differential - 08/10/19 14:20 Blood leukocytes automated count (number/volume) 8.8 10*3/uL 4.3-11.0 Blood erythrocytes automated count (number/volume) 5.07 10*6/uL 4.35-5.85 Venous blood hemoglobin measurement (mass/volume) 15.2 g/dL 11.5-16.0 Blood hematocrit (volume fraction) 45 % 35-52 Automated erythrocyte mean corpuscular volume 89 [ foz_us] 80-99 Automated erythrocyte mean corpuscular h emoglobin (mass per erythrocyte) 30 pg 25-34 Automated erythrocyte mean corpuscular h emoglobin concentration measurement (mass/volume) 34 g/dL 32-36 Automated erythrocyte distribution width ratio 13. 0 % 10.0- 14.5 Automated blood platelet count (count/volume) 318 10*3/uL 130-400 Automated blood platelet mean volume measurement 9.6 [foz_us] 7.4-10.4 Automated blood neutrophils/100 leukocytes 64 % 42-75 Automated blood lymphocytes/100 leukocytes 24 % 12-44 Blood monocytes/100 leukocytes 9 % 0-12 Automated blood eosinophils/100 leukocytes 2 % 0-10 Automated blood basophils/100 leukocytes 1 % 0-10 Blood neutrophils automated count (number/volume) 5.6 10*3 1.8-7.8 Blood lymphocytes automated count (number/volume) 2.1 10*3 1.0-4.0 Blood monocytes automated count (number/volume) 0. 8 10*3 0.0-1.0 Automated eosinophil count 0.2 10*3/uL 0 .0-0.3 Automated blood basophil count (count/volume) 0.1 10*3/uL 0.0-0.1 Comprehensive metabolic panel - 08/10/19 14:20 Serum or plasma sodium measurement (moles/volume) 136 mmol/L 135-145 Serum or plasma potassium measurement (moles/volume) 3.9 mmol/L 3.6-5.0 Serum or plasma chloride measurement (moles/volume) 107 mmol/L 98-107 Carbon dioxide 18 mmol/L 21-32 Serum or plasma anion gap determination (moles/volume) 11 mmol/L 5-14 Serum or plasma urea nitrogen measurement (mass/volume ) 14 mg/dL 7-18 Serum or plasma creatinine measurement (mass/volume) 0.94 mg/dL 0.60-1.30 Serum or plasma urea nitrogen/creatinine mass ratio 15 NRG Serum or plasma creatinine measurement w ith calculation of estimated glomerular filtration rate 60 NRG Serum or plasma glucose measurement (mass/volume) 92 mg/dL 70-105 Serum or plasma calcium measurement (mass/volume) 8.8 mg/dL 8.5-10.1 Serum or plasma total bilirubin measurement (mass/volu me) 0.3 mg/dL 0.1-1.0 Serum or plasma alkaline phosphatase stevenson surement (enzymatic activity/volume) 62 U/L 40-136 Serum or plasma aspartate aminotransfera se measurement (enzymatic activity/volume) 12 U/L 5-34 Serum or plasma alanine aminotransferase measurement (enzymatic activity/volume) 10 U/L 0-55 Serum or plasma protein measurement (mass/volume) 6.8 g/dL 6.4-8.2 Serum or plasma albumin measurement (mass/volume) 3.9 g/dL 3.2-4.5 CALCIUM CORRECTED 8.9 mg/dL 8.5-10.1 Serum or plasma amylase measurement (enz ymatic activity/volume) - 08/10/19 14:20 Serum or plasma amylase measurement (enzymatic activit y/volume) 45 U/L 25-125 Lipase - 08/10/19 14:20 Lipase 40 U/L 8-78 CA 125 - 08/10/19 14:20 CA 125 C 18.7 u[iU]/mL 0.0-35.0 [id number] - 08/13/19 13:00 [id number] SPECIMEN AVAILABLE [facility] Methicillin resistant Staphylococcus aur eus (MRSA) screening culture - 08/13/19 13:00 Methicillin resistant Staphylococcus aureus (MRSA) scr eening culture NEG [facility] Complete blood count (CBC) with automate d white blood cell (WBC) differential - 08/14/19 05:53 Blood leukocytes automated count (number/volume) 14.4 10*3/uL 4.3-11.0 Blood erythrocytes automated count (number/volume) 4.81 10*6/uL 4.35-5.85 Venous blood hemoglobin measurement (mass/volume) 14.4 g/dL 11.5-16.0 Blood hematocrit (volume fraction) 44 % 35-52 Automated erythrocyte mean corpuscular volume 91 [ foz_us] 80-99 Automated erythrocyte mean corpuscular h emoglobin (mass per erythrocyte) 30 pg 25-34 Automated erythrocyte mean corpuscular h emoglobin concentration measurement (mass/volume) 33 g/dL 32-36 Automated erythrocyte distribution width ratio 13. 2 % 10.0- 14.5 Automated blood platelet count (count/volume) 305 10*3/uL 130-400 Automated blood platelet mean volume measurement 9.7 [foz_us] 7.4-10.4 Automated blood neutrophils/100 leukocytes 90 % 42-75 Automated blood lymphocytes/100 leukocytes 6 % 12-44 Blood monocytes/100 leukocytes 4 % 0-12 Automated blood eosinophils/100 leukocytes 0 % 0-10 Automated blood basophils/100 leukocytes 0 % 0-10 Blood neutrophils automated count (number/volume) 12.9 10*3 1.8-7.8 Blood lymphocytes automated count (number/volume) 0.9 10*3 1.0-4.0 Blood monocytes automated count (number/volume) 0. 6 10*3 0.0-1.0 Automated eosinophil count 0.0 10*3/uL 0 .0-0.3 Automated blood basophil count (count/volume) 0.0 10*3/uL 0.0-0.1 Whole blood basic metabolic panel - 06/03 05:53 Serum or plasma sodium measurement (moles/volume) 132 mmol/L 135-145 Serum or plasma potassium measurement (moles/volume) 3.8 mmol/L 3.6-5.0 Serum or plasma chloride measurement (moles/volume) 102 mmol/L 98-107 Carbon dioxide 19 mmol/L 21-32 Serum or plasma anion gap determination (moles/volume) 11 mmol/L 5-14 Serum or plasma urea nitrogen measurement (mass/volume ) 12 mg/dL 7-18 Serum or plasma creatinine measurement (mass/volume) 1.18 mg/dL 0.60-1.30 Serum or plasma urea nitrogen/creatinine mass ratio 10 NRG Serum or plasma creatinine measurement w ith calculation of estimated glomerular filtration rate 46 NRG Serum or plasma glucose measurement (mass/volume) 136 mg/dL 70-105 Serum or plasma calcium measurement (mass/volume) 8.1 mg/dL 8.5-10.1 Magnesium - 08/14/19 05:53 Magnesium 1.6 mg/dL 1.6-2.4 Whole blood basic metabolic panel - 06/03 14:52 Serum or plasma sodium measurement (moles/volume) 130 mmol/L 135-145 Serum or plasma potassium measurement (moles/volume) 4.4 mmol/L 3.6-5.0 Serum or plasma chloride measurement (moles/volume) 102 mmol/L 98-107 Carbon dioxide 18 mmol/L 21-32 Serum or plasma anion gap determination (moles/volume) 10 mmol/L 5-14 Serum or plasma urea nitrogen measurement (mass/volume ) 15 mg/dL 7-18 Serum or plasma creatinine measurement (mass/volume) 1.98 mg/dL 0.60-1.30 Serum or plasma urea nitrogen/creatinine mass ratio 8 NRG Serum or plasma creatinine measurement w ith calculation of estimated glomerular filtration rate 25 NRG Serum or plasma glucose measurement (mass/volume) 146 mg/dL 70-105 Serum or plasma calcium measurement (mass/volume) 8.0 mg/dL 8.5-10.1 Magnesium - 08/14/19 14:52 Magnesium 2.5 mg/dL 1.6-2.4 Whole blood basic metabolic panel - 07/01 05:12 Serum or plasma sodium measurement (moles/volume) 134 mmol/L 135-145 Serum or plasma potassium measurement (moles/volume) 3.9 mmol/L 3.6-5.0 Serum or plasma chloride measurement (moles/volume) 108 mmol/L 98-107 Carbon dioxide 19 mmol/L Serum or plasma anion gap determination (moles/volume) 7 mmol/L 5-14 Serum or plasma urea nitrogen measurement (mass/volume ) 10 mg/dL 7-18 Serum or plasma creatinine measurement (mass/volume) 1.24 mg/dL 0.60-1.30 Serum or plasma urea nitrogen/creatinine mass ratio 8 NRG Serum or plasma creatinine measurement w ith calculation of estimated glomerular filtration rate 44 NRG Serum or plasma glucose measurement (mass/volume) 108 mg/dL 70-105 Serum or plasma calcium measurement (mass/volume) 7.5 mg/dL 8.5-10.1 Magnesium - 08/15/19 05:12 Magnesium 2.4 mg/dL 1.6-2.4 Magnesium - 08/15/19 13:44 Magnesium 2.3 mg/dL 1.6-2.4 Whole blood basic metabolic panel - 08/01 05:25 Serum or plasma sodium measurement (moles/volume) 137 mmol/L 135-145 Serum or plasma potassium measurement (moles/volume) 3.7 mmol/L 3.6-5.0 Serum or plasma chloride measurement (moles/volume) 105 mmol/L 98-107 Carbon dioxide 23 mmol/L Serum or plasma anion gap determination (moles/volume) 9 mmol/L 5-14 Serum or plasma urea nitrogen measurement (mass/volume ) 9 mg/dL 7-18 Serum or plasma creatinine measurement (mass/volume) 0.84 mg/dL 0.60-1.30 Serum or plasma urea nitrogen/creatinine mass ratio 11 NRG Serum or plasma creatinine measurement w ith calculation of estimated glomerular filtration rate > NRG Serum or plasma glucose measurement (mass/volume) 110 mg/dL 70-105 Serum or plasma calcium measurement (mass/volume) 8.2 mg/dL 8.5-10.1 Complete blood count (CBC) with automate d white blood cell (WBC) differential - 08/17/19 05:26 Blood leukocytes automated count (number/volume) 9.4 10*3/uL 4.3-11.0 Blood erythrocytes automated count (number/volume) 3.99 10*6/uL 4.35-5.85 Venous blood hemoglobin measurement (mass/volume) 11.9 g/dL 11.5-16.0 Blood hematocrit (volume fraction) 37 % 35-52 Automated erythrocyte mean corpuscular volume 92 [ foz_us] 80-99 Automated erythrocyte mean corpuscular h emoglobin (mass per erythrocyte) 30 pg 25-34 Automated erythrocyte mean corpuscular h emoglobin concentration measurement (mass/volume) 33 g/dL 32-36 Automated erythrocyte distribution width ratio 12. 8 % 10.0- 14.5 Automated blood platelet count (count/volume) 299 10*3/uL 130-400 Automated blood platelet mean volume measurement 9.3 [foz_us] 7.4-10.4 Automated blood neutrophils/100 leukocytes 81 % 42-75 Automated blood lymphocytes/100 leukocytes 9 % 12-44 Blood monocytes/100 leukocytes 8 % 0-12 Automated blood eosinophils/100 leukocytes 2 % 0-10 Automated blood basophils/100 leukocytes 0 % 0-10 Blood neutrophils automated count (number/volume) 7.6 10*3 1.8-7.8 Blood lymphocytes automated count (number/volume) 0.8 10*3 1.0-4.0 Blood monocytes automated count (number/volume) 0. 7 10*3 0.0-1.0 Automated eosinophil count 0.2 10*3/uL 0 .0-0.3 Automated blood basophil count (count/volume) 0.0 10*3/uL 0.0-0.1 Whole blood basic metabolic panel - 08/31 06:10 Serum or plasma sodium measurement (moles/volume) 135 mmol/L 135-145 Serum or plasma potassium measurement (moles/volume) 3.5 mmol/L 3.6-5.0 Serum or plasma chloride measurement (moles/volume) 104 mmol/L 98-107 Carbon dioxide 22 mmol/L 21-32 Serum or plasma anion gap determination (moles/volume) 9 mmol/L 5-14 Serum or plasma urea nitrogen measurement (mass/volume ) 11 mg/dL 7-18 Serum or plasma creatinine measurement (mass/volume) 0.84 mg/dL 0.60-1.30 Serum or plasma urea nitrogen/creatinine mass ratio 13 NRG Serum or plasma creatinine measurement w ith calculation of estimated glomerular filtration rate > NRG Serum or plasma glucose measurement (mass/volume) 93 mg/dL 70-105 Serum or plasma calcium measurement (mass/volume) 7.8 mg/dL 8.5-10.1 Magnesium - 08/17/19 06:10 Magnesium 1.9 mg/dL 1.6-2.4 Encounters ACCT No. Visit Date/Time Discharge Status Pt. Type Provider Facility Loc./Unit Complaint [id number] 09/01/2019 15:17:00 23:59:59 CLS Outpatient JIMBO KENYON DO [facility] RAD BLADDER INJURY [id number] 08/26/2019 10:03:00 23:59:59 CLS Outpatient JIMBO KENYON DO [facility] RAD VAGINAL CUFF DEHISCENCE [id number] 08/13/2019 12:35:00 12:10:00 DIS Inpatient JIMBO KENYON DO [facility] WS LEFT OVARIAN CYST COMPL EX [id number] 08/10/2019 13:01:00 16:59:00 DIS Emergency MAIRA BANEGAS [facility] ER ABD PAIN [id number] 05/03/2019 11:36:00 23:59:59 CLS Outpatient MADDISON JACOBO [facility] RAD SCREENING [id number] 06/19/2018 13:02:00 019 23:59:59 CLS Outpatient JUAN OWENS, SYLWIA Lind [facility] RAD LT FABY STARK NT OF OTHER LATERAL MENISCUS [id number] 04/30/2018 11:14:00 019 23:59:59 CLS Outpatient JACOBOLALO AMBROCIO DO [facility] RAD SCREENING [id number] 02/27/2017 13:05:00 017 23:59:59 CLS Outpatient JACOBO, MADDISON L [employer]EROS[employer] QUALITY ENGINEER [facility] RAD SCREENING [id number] 02/13/2016 12:54:00 016 23:59:59 CLS Outpatient JACOBO, MADDISON L AEROSP[employer] QUALITY ENGINEER [facility] RAD ROUTINE [id number] 02/07/2015 11:43:00 015 23:59:59 CLS Outpatient JACOBO, MADDISON L AEROSP[employer] QUALITY ENGINEER [facility] RAD SCREENING [id number] 01/17/2014 10:44:00 014 23:59:59 CLS Outpatient JACOBO, MADDISON L AEROSPACE QUALITY ENGINEER [facility] RAD ROUTINE [id number] 07/21/2013 07:57:00 014 11:45:00 DIS Outpatient CHESTER STEEN MD [facility] SDC SCREENING [id number] 07/14/2013 07:14:00 014 23:59:59 CLS Outpatient CHESTER STEEN MD [facility] PREOP SCREENING [id number] 02/12/2013 13:54:00 013 23:59:59 CLS Outpatient JACOBOOSIEL ADAMSIA L AEROSP[employer] QUALITY ENGINEER [facility] RAD THYROMEGLY [id number] 01/11/2013 11:25:00 013 23:59:59 CLS Outpatient JACOBO, MADDISON L AEROSP[employer] QUALITY ENGINEER [facility] RAD SCREENING [id number] 09/13/2011 10:01:00 Document Registration [id number] 07/30/2010 09:22:00 Document Registration
--- NOTE | 2019-09-05 11:39 | ED GU-Female ---
General Stated Complaint: CATHETER NOT DRAINING Source: patient Exam Limitations: no limitations History of Present Illness Date Seen by Provider: September 05, 2019 Time Seen by Provider: 11:36 Initial Comments Patient had a Pinon catheter placed about 1.5 weeks ago after complications associated with hysterectomy. It has been draining fine until today, at which point she notices no drainage. Timing/Duration: constant Severity/Quality: mild Location: unknown Radiation: none Prior Genitourinary Problems: none Associated Symptoms: denies symptoms Allergies and Home Medications Allergies Coded Allergies: No Known Drug Allergies (Unverified , 07/21/13) Home Medications Acetaminophen 500 Mg Tablet, 1,000 MG PO Q8H PRN for PAIN-MILD (1-4) Prescribed by: JIMBO KENYON on 08/17/19 1023 Cyclobenzaprine HCl 10 Mg Tablet, 10 MG PO DAILY, (Reported) Famotidine 20 Mg Tablet, 20 MG PO BID PRN for INDIGESTION Prescribed by: JIMBO KENYON on 08/17/19 1023 Levothyroxine Sodium 50 Mcg Tablet, 50 MCG PO DAILY, (Reported) Magnesium Oxide 400 Mg Tablet, 3 TAB PO DAILY, (Reported) Oxycodone HCl 5 Mg Tablet, 5 MG PO Q4H PRN for PAIN-BREAKTHROUGH 1 every 4 hours or 2 every 6 hours for pain Prescribed by: JIMBO KENYON on 08/17/19 1023 Simethicone 80 Mg Tab.chew, 80 MG PO Q2HR PRN for GAS Prescribed by: JIMBO KENYON on 08/17/19 1023 Sumatriptan Succinate 100 Mg Tablet, 100 MG PO DAILY PRN for MIGRAINE, (Reported) Topiramate 50 Mg Tablet, 50 MG PO DAILY, (Reported) Zolpidem Tartrate 5 Mg Tablet, 5 MG PO HS PRN for sleep Prescribed by: JIMBO KENYON on 08/17/19 1023 Patient Home Medication List Home Medication List Reviewed: Yes Review of Systems Review of Systems Constitutional: see HPI EENTM: see HPI Respiratory: no symptoms reported Cardiovascular: no symptoms reported Genitourinary: see HPI Musculoskeletal: no symptoms reported Skin: no symptoms reported Psychiatric/Neurological: No Symptoms Reported Past [place]-Hzzmxe-Tertpe Hx Patient Social History Recent Foreign Travel: No Contact w/Someone Who Travel: No Immunizations Up To Date PED Vaccines UTD: Yes Past Medical History Surgeries: Yes (CYST REMOVED FROM OVARY; WISDOM TEETH) Respiratory: No Currently Using CPAP: No Currently Using BIPAP: No Cardiac: No Neurological: No Gastrointestinal: No Musculoskeletal: No Endocrine: Yes Physical Exam Vital Signs Capillary Refill : Height, Weight, BMI Height: 5'5.00" Weight: 165lbs. oz. 74.070187tg; 30.11 BMI Method: General Appearance: WD/WN, no apparent distress HEENT: PERRL/EOMI, normal ENT inspection Neck: non-tender, full range of motion Respiratory: no respiratory distress, no accessory muscle use Gastrointestinal: normal bowel sounds, non tender, soft Neurologic/Psychiatric: alert, normal mood/affect, oriented x 3 Skin: normal color, warm/dry Progress/Results/Core Measures Suspected Sepsis SIRS Temperature: Pulse: Respiratory Rate: Blood Pressure / Mean: Results/Orders Vital Signs/I&O Capillary Refill : Departure Communication (Admissions) 14 Nepali Pinon catheter was removed and replaced with a new 14 Nepali Pinon catheter. Urine was then noticed in the catheter tubing. Impression Primary Impression: Urinary catheter dysfunction Qualified Codes: T83.018A - Breakdown (mechanical) of other urinary cathet er, initial encounter Disposition: HOME, SELF-CARE Condition: Stable Departure-Patient Inst. Decision time for Depature: 11:39 Referrals: LALO JACOBO DO (PCP) Primary Care Physician MADDISON JACOBO DNP (Family) Primary Care Physician Patient Instructions: Pinon Catheter, Female Add. Discharge Instructions: 1. Return to ER for any concerns 2. KARON MUSE APRN September 05, 2019 11:39
--- NOTE | 2019-09-05 11:43 | NUR ---
NEW CATHETER PLACED WITH MINIMAL URINE RETURN. KARON NOTIFIED. [employer] BRINGING DOWN THE BLADDER SCANNER.
== END 2019-09-05 12:01 | disposition home or self-care (01) ==
LOC: EDUNIT# 11:17 → ER 11:18
DX: T83.091A Other mechanical complication of indwelling urethral catheter, initial encounter (principal)
CPT/HCPCS: 51702

== ENCOUNTER → 2019-09-15 | Outpatient (CLI) | payer BC | LOC: LABNPT 08:36 | PROVIDERS: ATTEND Obstetrics & Gynecology | DX: Z01.818 Encounter for other preprocedural examination (principal); Z11.59 Encounter for screening for other viral diseases ==

== ENCOUNTER → 2019-10-21 | Outpatient (CLI) | payer BC | LOC: LABNPT 08:59 | PROVIDERS: ATTEND Obstetrics & Gynecology | DX: Z01.818 Encounter for other preprocedural examination (principal); Z20.828 Contact with and (suspected) exposure to other viral communicable diseases | CPT/HCPCS: 87635 ==

== ENCOUNTER → 2020-06-20 | Outpatient (CLI) | payer BC, MEDICARE ==
[~2020-06-20] MED LIST changes: +OXC5T PO; -OXYC5TAB96 PO
--- NOTE | 2020-06-20 20:01 | Diagnostic Imaging Report ---
INDICATION: Routine screening. Comparison is made with prior mammogram from 05/03/2019 and 04/30/2018. 2-D and 3-D bilateral screening mammography was performed with CAD. Both breasts are heterogeneously dense, limiting the sensitivity of mammography. Benign circumscribed nodules in the upper outer aspects of both breasts remain stable. No spiculated mass or malignant appearing microcalcifications are seen. Axillae are unremarkable. IMPRESSION: BI-RADS Category 2 No mammographic features suspicious for malignancy are identified. ACR BI-RADS Category 2: Benign findings. Result letter will be mailed to the patient. Note: At least 10% of breast cancer is not imaged by mammography. Dictated by: Dictated on workstation # [id number]
== END ==
LOC: RAD 13:00
PROVIDERS: ATTEND Nurse Practitioner Family
DX: Z12.31 Encounter for screening mammogram for malignant neoplasm of breast (principal)
CPT/HCPCS: 77063; 77067

== ENCOUNTER → 2020-08-16 | Outpatient (CLI) | payer MEDICARE, OTHER ==
--- NOTE | 2020-08-16 16:01 | Diagnostic Imaging Report ---
INDICATION: Back weakness. Pain and stiffness. COMPARISON: MR dated 06/19/2018. EXAMINATION: Frontal and lateral radiographic views of the lumbar spine were obtained. FINDINGS: Mild grade 1 and grade 2 anterolisthesis at L5-S1. There is also slight grade 1 retrolisthesis at L4-L5. There is no evidence of jumped facets. Vertebral body heights are maintained. There is no acute fracture. Note is made of moderate multilevel degenerative changes consistent with intervertebral disc height loss with anterior and posterior endplate osteophyte formations and facet arthropathy. These changes are also greatest at L4-L5 and L5-S1. IMPRESSION: 1. No acute fracture dislocation of the lumbar spine. 2. Multilevel degenerative changes, greatest at L4-L5 and L5-S1. Dictated by: Dictated on workstation # [id number]
== END ==
LOC: RAD 15:04
PROVIDERS: ATTEND Nurse Practitioner Family
DX: M47.816 Spondylosis without myelopathy or radiculopathy, lumbar region (principal); M47.817 Spondylosis without myelopathy or radiculopathy, lumbosacral region
CPT/HCPCS: 72100

== ENCOUNTER → 2021-06-25 | Outpatient (CLI) | payer MEDICARE, OTHER ==
[~2021-06-25] MED LIST changes: +CYCL10TA25 PO; -CYCL10TA9 PO
--- NOTE | 2021-06-26 09:31 | Diagnostic Imaging Report ---
INDICATION: Routine screening. COMPARISON: 06/20/2020 and 05/03/2019. TECHNIQUE: 2D and 3D bilateral screening mammography was performed with CAD. FINDINGS: Both breasts are heterogeneously dense, limiting the sensitivity of mammography. Benign nodules in the upper outer aspects of both breasts appear stable. No spiculated mass or malignant-appearing microcalcifications are seen. The axillae are unremarkable. IMPRESSION: No mammographic features suspicious for malignancy are identified. ACR BI-RADS Category 2: Benign findings. Result letter will be mailed to the patient. Note: At least 10% of breast cancer is not imaged by mammography. Dictated by: Dictated on workstation # [id number]
== END ==
LOC: RAD 15:00
PROVIDERS: ATTEND Nurse Practitioner Family
DX: Z12.31 Encounter for screening mammogram for malignant neoplasm of breast (principal)
CPT/HCPCS: 77063; 77067

== ENCOUNTER → 2022-07-08 | Outpatient (CLI) | payer MEDICARE, OTHER ==
--- NOTE | 2022-07-08 19:34 | Diagnostic Imaging Report ---
Indication: Routine screening. Comparison is made with prior mammograms from 06/25/2021 and 06/20/2020. 2-D and 3-D bilateral screening mammography was performed with CAD. Both breasts are heterogeneously dense, limiting the sensitivity of mammography. Benign nodules in both breasts are stable. No spiculated mass or malignant-appearing microcalcifications are seen. Axillae are unremarkable. IMPRESSION: BI-RADS Category 2 No mammographic features suspicious for malignancy are identified. ACR BI-RADS Category 2: Benign findings. Result letter will be mailed to the patient. Note: At least 10% of breast cancer is not imaged by mammography. Dictated by: Dictated on workstation # [id number]
== END ==
LOC: RAD 14:15
PROVIDERS: ATTEND Nurse Practitioner Family
DX: Z12.31 Encounter for screening mammogram for malignant neoplasm of breast (principal)
CPT/HCPCS: 77063; 77067